=== PATIENT | female | born 1980 | race Caucasian/White ===

== ENCOUNTER 2016-08-07 06:22 | Emergency (ER) | payer BC ==
--- NOTE | 2016-08-07 07:11 | EDM.PDOC ---
ED HISTORY OF PRESENT ILLNESS - General Chief Complaint: Respiratory Problem Stated Complaint: FLU SYMPTOMS WORSE Time Seen by Provider: 08/07/16 06:44 Source of Information: Reports: Patient, RN notes reviewed - History of Present Illness INITIAL COMMENTS - FREE TEXT/NARRATIVE: 35-year-old female became ill with cough congestion sore throat 3 days ago. She has had headache myalgias, chills possible low-grade fever as well. She was seen at the clinic yesterday and did test positive for influenza B. She was started on Tamiflu. She is insulin-dependent diabetic and worried about possible dehydration. there's been no vomiting. Her sugars have been running in the 200s to low 300 range - Related Data Allergies/ADRs: Allergies Allergy/AdvReac Type Severity Reaction Status Date / Time No Known Allergies Allergy Verified 08/07/16 06:31 Home Meds: Home Meds Insulin Glarg,Human.Rec.Analog [Lantus] 15 units SUBCUT BID 02/22/14 [History] Insulin Lispro [HumaLOG] 12 units SUBCUT BID 02/22/14 [History] Omeprazole 20 mg PO DAILY 08/07/16 [History] Oseltamivir [Tamiflu] 75 mg PO BID 08/07/16 [History] Past Medical History - Past Health History Medical/Surgical History: Denies Medical/Surgical History Endocrine/Metabolic History: Reports: Diabetes, type I - Past Surgical History Other HEENT Surgeries/Procedures: wisdom teeth extraction Musculoskeletal Surgical History: Reports: Arthroscopic knee Other Musculoskeletal Surgeries/Procedures:: Left and Right AI jj release of thumb, Left toe surgery Social & Family History - Tobacco Use Smoking Status *Q: Never Smoker Second Hand Smoke Exposure: No - Caffeine Use Caffeine Use: Reports: Soda - Alcohol Use Days Per Week of Alcohol Use: 0 - Recreational Drug Use Recreational Drug Use: No Drug Use in Last 12 Months: No ED ROS GENERAL - Review of Systems Review Of Systems: See Below Constitutional: Reports: fever (Low-grade), chills HEENT: Reports: Sinus problem (She does have nasal and sinus congestion with clear drainage), Throat pain Respiratory: Reports: Cough. Denies: Shortness of Breath, Wheezing, Sputum Cardiovascular: Reports: Chest pain (With coughing) GI/Abdominal: Reports: Diarrhea (Mild), Nausea (Occasional). Denies: Abdominal pain, Vomiting Musculoskeletal: Reports: other (Generalized myalgias) Skin: Reports: no symptoms Neurological: Reports: Headache ED EXAM, GENERAL - Physical Exam Exam: See Below General Appearance: alert, no apparent distress, other (Occasional cough) Eye Exam: bilateral eye: PERRL Ears: normal TMs Nose: clear rhinorrhea (Mild) Throat/Mouth: Normal inspection, Normal oropharynx, Other (Oral mucosa is moist) Head: No: facial swelling Neck: supple, full range of motion. No: lymphadenopathy (L), lymphadenopathy (R ) Respiratory/Chest: no respiratory distress, lungs clear, normal breath sounds. No: rhonchi, wheezing Cardiovascular: regular rate, rhythm GI/Abdominal: non tender Extremities: normal inspection, normal range of motion Neurological: alert, oriented, no motor/sensory deficits Skin Exam: Warm, Dry, Normal color, No rash Course - Vital Signs Last Recorded V/S: Last Vital Signs Temp 99.1 F 08/07/16 06:32 Pulse 77 08/07/16 06:32 Resp 16 08/07/16 06:32 BP 116/69 08/07/16 06:32 Pulse Ox 99 08/07/16 06:32 - Re-Assessments/Exams Free Text/Narrative Re-Assessment/Exam: 08/07/16 07:14. Patient came in primarily worried about dehydration. She is not clinically dehydrated at this time. Her heart rate is 77. Oral mucosa is quite moist. She has been drinking water and should will be able to maintain hydration with oral fluid intake. This has been discussed with patient. One other main problem is quite severe throat discomfort with swallowing. She has a few hydrocodone left over from a prior procedure. I discussed with her that she may use that as appropriate for a day or 2 until she does get feeling better. Other symptomatic measures discussed with patient. Discharge instructions as documented Departure - Departure Time of Disposition: 07:05 Disposition: Home, Self-Care 01 Condition: fair Clinical Impression: Influenza Referrals: Berkley Lang NP [Primary Care Provider] - Forms: ED Department Discharge, Return to Work/School Form Additional Instructions: Continue to drink a lot of water, hot tea, soup to maintain hydration. Vaporizer or humidifier as needed. Continue Tamiflu as prescribed. Continue to watch your sugars carefully and use sliding scale to try help maintain control. You may alternate Tylenol and ibuprofen for discomfort or take hydrocodone as previously prescribed for severe discomfort today and tonight if needed to help you sleep. Your symptoms now will gradually start to get better over the next one to 3 days. You should be well enough to go back to work by next Wednesday. Followup clinic if not much better by Wednesday as expected. Return to ED as needed if symptoms worsening over the weekend.
[2016-08-07 07:27] VITALS: BP 129/91
== END 2016-08-07 07:20 | disposition home or self-care (01) ==
LOC: JD.ED 06:22
DX: J11.1 Influenza due to unidentified influenza virus with other respiratory manifestations (principal); E10.9 Type 1 diabetes mellitus without complications; Z98.890 Other specified postprocedural states
CPT/HCPCS: 99282; 99283

== ENCOUNTER 2019-01-02 09:39 | Emergency (ER) | payer BC ==
[2019-01-02 09:53] VITALS: BP 116/78; PULSE 96
[2019-01-02] MEDS ORDERED: Sodium Chloride 0.9% 10 ML Syringe FLUSH PRN (10:10)
[2019-01-02] MEDS ORDERED: HYDROmorphone 0.5 MG/0.5 ML Syringe IVPUSH ONE (10:10)
[2019-01-02] MEDS ORDERED: cefTRIAXone 2 GM in Sodium Chloride 0.9% 100 ML IV SCH (10:45)
[2019-01-02] MEDS ORDERED: Clindamycin Phosphate in D5W 900 MG in Premix Bag 1 BAG IV ONE ×2 (10:48)
--- NOTE | 2019-01-02 12:43 | EDM.PDOC ---
ED HPI GENERAL MEDICAL PROBLEM - General Chief Complaint: Bite:Animal, Insect Stated Complaint: DOG BITE TO THUMB Time Seen by Provider: 01/02/19 10:00 Source of Information: Reports: Patient, RN Notes Reviewed - History of Present Illness INITIAL COMMENTS - FREE TEXT/NARRATIVE: 38-year-old female was bit by a dog 2 days ago. This was not her dog, she was taking care of it but the dog is reported to been up-to-date with rabies. The dog bit the joint area of her right thumb. It did swell up immediately. By the next morning it was more swollen inflamed, looking infected. She was seen at the walk-in clinic yesterday morning, started on Augmentin 875 twice a day. She did take 2 dosages of that yesterday but did not take the Augmentin antibiotic this morning. Today the thumb is more inflamed, sore and swollen. No fever or chills. Does have pain with motion at the IP joint of the thumb. Treatments [employer]: Reports: NSAIDS Right Finger-Thumb Pain Score (Numeric/FACES): 6 - Related Data Allergies Allergy/AdvReac Type Severity Reaction Status Date / Time No Known Allergies Allergy Verified 01/02/19 09:53 Home Meds: Home Meds Insulin Glarg,Human.Rec.Analog [Lantus] 12 units SUBCUT BID 02/22/14 [History] Insulin Lispro [HumaLOG] 1 - 15 units SUBCUT QID 02/22/14 [History] Acetaminophen/HYDROcodone [[place] 325-5 MG] 1 tab PO Q6HR PRN #10 tablet [Rx] Amoxicillin 875 mg PO BID 01/02/19 [History] Clindamycin HCl [Cleocin HCl] 300 mg PO Q8HR #20 capsule 01/02/19 [Rx] Docusate Sodium [Colace] 100 mg PO DAILY 01/02/19 [History] Esomeprazole Magnesium [Nexium 24Hr] 20 mg PO DAILY 01/02/19 [History] Sucralfate [Carafate] 1 gm PO QID 01/02/19 [History] Past Medical History - Past Health History Medical/Surgical History: Denies Medical/Surgical History Endocrine/Metabolic History: Reports: Diabetes, Type I - Past Surgical History Other HEENT Surgeries/Procedures: wisdom teeth extraction Musculoskeletal Surgical History: Reports: Arthroscopic Knee Social & Family History - Tobacco Use Smoking Status *Q: Never Smoker - Caffeine Use Caffeine Use: Reports: Soda - Recreational Drug Use Recreational Drug Use: No ED ROS GENERAL - Review of Systems Review Of Systems: See Below Constitutional: Denies: Fever, Chills HEENT: Reports: No Symptoms Respiratory: Denies: Shortness of Breath Cardiovascular: Denies: Chest Pain GI/Abdominal: Denies: Abdominal Pain, Nausea, Vomiting Musculoskeletal: Reports: Joint Pain Skin: Reports: Erythema (R thumb) Neurological: Denies: Numbness, Tingling ED EXAM, ANIMAL BITE - Physical Exam Exam: See Below General Appearance: Alert, Mild Distress Head: Atraumatic. No: Facial Swelling Neck: Supple Respiratory/Chest: No Respiratory Distress, Lungs Clear Cardiovascular: Regular Rate, Rhythm Extremities: Joint Swelling (IP joint area of R thumb, small puncture michelle visible, no visible drainage, moderate localized tenderness), Other (pain with motion IP joint of R thumb) Neurological: No Motor/Sensory Deficits Skin Exam: Warm/Dry, Other (hand without swelling, warmth or erythema) Course - Vital Signs Last Recorded V/S: Last Vital Signs Temp 97.5 F 01/02/19 09:50 Pulse 96 01/02/19 09:50 Resp 16 01/02/19 09:50 BP 116/78 01/02/19 09:50 Pulse Ox 100 01/02/19 09:50 - Orders/Labs/Meds Labs: Laboratory Tests 01/02/19 01/02/19 Range/Units 10:16 10:16 WBC 5.29 (3.98-10.04) K/mm3 RBC 4.57 (3.98-5.22) M/mm3 Hgb 13.6 (11.2-15.7) gm/dl Hct 40.2 (34.1-44.9) % MCV 88.0 (79.4-94.8) fl MCH 29.8 (25.6-32.2) pg MCHC 33.8 (32.2-35.5) g/dl RDW Std Deviation 39.2 (36.4-46.3) fL Plt Count 301 (182-369) K/mm3 MPV 10.0 (9.4-12.3) fl Neut % (Auto) 75.0 H (34.0-71.1) % Lymph % (Auto) 15.9 L (19.3-51.7) % [place] % (Auto) 6.8 (4.7-12.5) % Eos % (Auto) 1.7 (0.7-5.8) Baso % (Auto) 0.6 (0.1-1.2) % Neut # (Auto) 3.97 (1.56-6.13) K/mm3 Lymph # (Auto) 0.84 L (1.18-3.74) K/mm3 [place] # (Auto) 0.36 (0.24-0.36) K/mm3 Eos # (Auto) 0.09 (0.04-0.36) K/mm3 Baso # (Auto) 0.03 (0.01-0.08) K/mm3 C-Reactive Protein 3.2 H* (<1.0) mg/dL Meds: Medications Discontinued Medications Generic Name Dose Route Start Last Admin Trade Name Freq PRN Reason Stop Dose Admin Hydromorphone HCl 0.5 mg 01/02/19 10:10 01/02/19 10:32 Dilaudid IVPUSH 01/02/19 10:11 0.5 mg ONETIME ONE Administration Ceftriaxone Sodium 2 gm/ 100 mls @ 200 mls/hr 01/02/19 10:45 01/02/19 10:59 Sodium Chloride IV 200 mls/hr Q24H OLEG Administration Clindamycin Phosphate 900 mg/ 50 mls @ 100 mls/hr 01/02/19 10:48 01/02/19 11: 32 Premix IV 01/02/19 11:17 100 mls/hr ONETIME ONE Administration Sodium Chloride 10 ml 01/02/19 10:10 01/02/19 10:33 Saline Flush FLUSH 10 ml ASDIRECTED PRN Administration Keep Vein Open - Re-Assessments/Exams Free Text/Narrative Re-Assessment/Exam: 01/12/19 13:46 WBC normal, CRP 3.2. We did give rocephin 2 grams IV, clindamycin 900 mg IV. Have set her up for continue IV rocephin IV and will have her continue oral clincamycin. Discharge instr. as documented. Departure - Departure Time of Disposition: 12:41 Disposition: Home, Self-Care 01 Condition: Fair Clinical Impression: Dog bite of extremity Cellulitis Qualifiers: Site of cellulitis: extremity Site of cellulitis of extremity: upper extremity Laterality: right Qualified Code(s): L03.113 - Cellulitis of right upper limb - Discharge Information Prescriptions: Acetaminophen/HYDROcodone [[place] 325-5 MG] 1 tab PO Q6HR PRN #10 tablet PRN Reason: Pain Clindamycin HCl [Cleocin HCl] 300 mg PO Q8HR #20 capsule Instructions: Cellulitis, Adult, [id number] Referrals: Berkley Lang NP [Primary Care Provider] - Forms: ED Department Discharge, ED Return to Work/School Form Additional Instructions: Rocephin 2 g IV has been given here in the ED, her has been written to continue that for the next 3 days. You've been given clindamycin 900 mg IV while here in the ED. Continue clindamycin 300 mg orally 3 times daily for the next week. For today take your next dose around 3:00 this afternoon and then evening dose at bedtime. You can alternate Tylenol and ibuprofen as needed for discomfort. Return to the hospital for the next 3 mornings around 8-9 AM to receive your further dosages of IV Rocephin antibiotic. Have rechecked at ED when you are here at the hospital 2 days from now. If the swelling, infection, inflammation of your thumb seems a lot worse tomorrow or if you start having fever chills tomorrow you should return to ED tomorrow for recheck.
== END 2019-01-02 13:30 | disposition home or self-care (01) ==
LOC: JD.ED 09:39
DX: S61.051A Open bite of right thumb without damage to nail, initial encounter (principal); L03.113 Cellulitis of right upper limb; E10.9 Type 1 diabetes mellitus without complications; Z79.899 Other long term (current) drug therapy; W54.0XXA Bitten by dog, initial encounter
CPT/HCPCS: 36415; 85025; 86140; 96365; 96367; 96375; 99283; J0696; J1170; J3490; J7030

== ENCOUNTER 2020-10-13 18:06 | Emergency (ER) | payer BC ==
[2020-10-13 18:21] VITALS: BP 108/95; PULSE 74
--- NOTE | 2020-10-13 19:08 | EDM.PDOC ---
ED HPI GENERAL MEDICAL PROBLEM - General Chief Complaint: Back Pain or Injury Stated Complaint: BACK PAIN Time Seen by Provider: 10/13/20 18:47 Source of Information: Reports: Patient, RN Notes Reviewed History Limitations: Reports: No Limitations - History of Present Illness INITIAL COMMENTS - FREE TEXT/NARRATIVE: Patient is a 39-year-old female presents to the ER for her ongoing lower back pain. Notes that the pain is been present for around 1 week now. States that this is in her right lower back, and does not seem to radiate anywhere else, down her leg or otherwise. She is not having any associated sick-like symptoms fevers or chills, cough or shortness of breath, no urinary discomfort, she has not lost control of her bowel or bladder, and has no saddle anesthesia. Patient does not think she could have twisted or moved the wrong way but she states that it does hurt worse to sit, or lay on her stomach. Notes that she has been having to sleep on her left side for the most part. States that she has been using ibuprofen pretty much [id number] and it does help but she was concerned that she was taking too much. Lower Back Pain Score (Numeric/FACES): 9 - Related Data Allergies Allergy/AdvReac Type Severity Reaction Status Date / Time No Known Allergies Allergy Verified 10/13/20 18:21 Home Meds: Home Meds Insulin Glarg,Human.Rec.Analog [Lantus] 21 units SUBCUT BID 02/22/14 [History] Insulin Lispro [HumaLOG] 1 - 15 units SUBCUT QID 02/22/14 [History] Famotidine [Pepcid AC] 10 mg PO DAILY 10/13/20 [History] Hydrocodone/Acetaminophen [Hydrocodone-Acetamin 5-325 mg] 1 each PO Q6H PRN #12 tablet 10/13/20 [Rx] Orphenadrine [Norflex] 100 mg PO BID PRN #20 tab 10/13/20 [Rx] methylPREDNISolone [Medrol Dose Pack] 4 mg PO ASDIRECTED #1 dospk 10/13/20 [Rx] Past Medical History - Past Health History Medical/Surgical History: Denies Medical/Surgical History Gastrointestinal History: Reports: Other (See Below) Other Gastrointestinal History: heartburn Endocrine/Metabolic History: Reports: Diabetes, Type I - Past Surgical History Other HEENT Surgeries/Procedures: wisdom teeth extraction Musculoskeletal Surgical History: Reports: Arthroscopic Knee Other Musculoskeletal Surgeries/Procedures:: Left and Right AI jj release of thumb, Left toe surgery Social & Family History - Family History Family Medical History: No Pertinent Family History - Tobacco Use Tobacco Use Status *Q: Never Tobacco User - Caffeine Use Caffeine Use: Reports: Coffee, Energy Drinks, Soda - Recreational Drug Use Recreational Drug Use: No ED ROS GENERAL - Review of Systems Review Of Systems: Comprehensive ROS is negative, except as noted in HPI. ED EXAM,LOWER BACK PAIN/INJURY - Physical Exam Exam: See Below Exam Limited By: No Limitations General Appearance: Alert, WD/WN, No Apparent Distress Respiratory/Chest: No Respiratory Distress, Lungs Clear, Normal Breath Sounds, No Accessory Muscle Use, Chest Non-Tender Cardiovascular: Normal Peripheral Pulses, Regular Rate, Rhythm, No Edema Back Exam: Muscle Spasm (Right lower back) Extremities: Normal Inspection, Normal Capillary Refill Neurological: Alert, Normal Mood/Affect, Normal Dorsiflexion, Normal Plantar Flexion Psychiatric: Normal Affect, Normal Mood Skin Exam: Warm, Dry, Intact, Normal Color, No Rash Course - Vital Signs Last Recorded V/S: Last Vital Signs Temp 96.8 F L 10/13/20 18:17 Pulse 74 10/13/20 18:17 Resp 15 10/13/20 18:17 BP 108/95 H 10/13/20 18:17 Pulse Ox 99 10/13/20 18:17 - Orders/Labs/Meds Orders: Active Orders 24 hr Category Date Time Status Lumbar Spine 2 or 3V [CR] Stat Exams 10/13/20 18:58 Ordered Acetaminophen/HYDROcodone [[place] 325-5 MG] Med 10/13/20 19:39 Once 2 tab PO ONETIME ONE Orphenadrine [Norflex] Med 10/13/20 19:39 Once 100 mg PO ONETIME ONE Medication Orders Hydrocodone Bitart/Acetaminophen (Acetaminophen/Hydrocodone 325-5 Mg Tab) 2 tab PO ONETIME ONE Stop: 10/13/20 19:40 Orphenadrine Citrate (Orphenadrine 100 Mg Tab.Er) 100 mg PO ONETIME ONE Stop: 10/13/20 19:40 Meds: Medications Generic Name Dose Route Start Last Admin Trade Name Freq PRN Reason Stop Dose Admin Hydrocodone Bitart/Acetaminophen 2 tab 10/13/20 19:39 Acetaminophen/Hydrocodone 325-5 Mg Tab PO 10/13/20 19:40 ONETIME ONE Orphenadrine Citrate 100 mg 10/13/20 19:39 Orphenadrine 100 Mg Tab.Er PO 10/13/20 19:40 ONETIME ONE - Re-Assessments/Exams Free Text/Narrative Re-Assessment/Exam: 10/13/20 19:07 Patient presents to the ER for the evaluation of her lower back pain, we will go ahead and get lumbar x-rays for evaluation of possible bulging disks versus other. Pain is directly over her SI joint on the right side. 10/13/20 19:31 X-rays have been obtained, I do not see anything major on x-rays to suggest source of her pain. We will go ahead and discharge her home with some pain meds and a short course of dexamethasone, as I do believe this is SI joint dysfunction part. Departure - Departure Time of Disposition: 19:32 Disposition: Home, Self-Care 01 Condition: Good Clinical Impression: Sacroiliac joint pain - Discharge Information *PRESCRIPTION DRUG MONITORING PROGRAM REVIEWED*: Yes *COPY OF PRESCRIPTION DRUG MONITORING REPORT IN PATIENT NADIYA: No Prescriptions: Hydrocodone/Acetaminophen [Hydrocodone-Acetamin 5-325 mg] 1 each PO Q6H PRN #12 tablet PRN Reason: Pain methylPREDNISolone [Medrol Dose Pack] 4 mg PO ASDIRECTED #1 dospk Orphenadrine [Norflex] 100 mg PO BID PRN #20 tab PRN Reason: Spasms Instructions: Back Injury Prevention, [id number] Referrals: Berkley Lang NP [Primary Care Provider] - Forms: ED Department Discharge Additional Instructions: You were evaluated in the ER today for your lower back pain. X-rays did not demonstrate any sign of acute fracture or other bony abnormality at today's visit. This is suspicious for SI joint dysfunction in nature, as the pain you are describing is right over the SI (sacroiliac) joint. Management of this will be a short course of steroids, some pain medication, and muscle relaxers Please note that since you are diabetic, that the steroids can cause increase in your blood sugars, so you will need to watch your sugars pretty closely while using this medication. You were given a prescription for a strong pain medication, hydrocodone/acetaminophen 5/325 mg, please take 1 tab every 6 hours as needed for pain not relieved by Tylenol or ibuprofen alone. Please note this medication does contain Tylenol in it, so do not take more than 4000 mg in a 24- hour time span. These medications can be addictive, so please take as few as possible to achieve adequate pain control. These meds can also be quite constipating, recommend that you increase your oral fluid intake and take a stool softener like MiraLAX while taking these medications. Do not drive while taking this medication. This medication was electronically sent to the [place] [facility] located in the [employer] store. If pain does not seem to be much improved in roughly 1 week's time, recommend you follow-up with your regular care provider for MRI purposes for further evaluation. Do not hesitate to return to the ER at any time if symptoms change or worsen. Sepsis Event Note (ED) - Evaluation Sepsis Screening Result: No Definite Risk - Focused Exam Vital Signs: Vital Signs Temp Pulse Resp BP Pulse Ox 10/13/20 18:17 96.8 F L 74 15 108/95 H 99 - My Orders Last 24 Hours: My Active Orders 10/13/20 18:58 Lumbar Spine 2 or 3V [CR] Stat 10/13/20 19:39 Acetaminophen/HYDROcodone [[place] 325-5 MG] 2 tab PO ONETIME ONE Orphenadrine [Norflex] 100 mg PO ONETIME ONE - Assessment/Plan Last 24 Hours: My Active Orders 10/13/20 18:58 Lumbar Spine 2 or 3V [CR] Stat 10/13/20 19:39 Acetaminophen/HYDROcodone [[place] 325-5 MG] 2 tab PO ONETIME ONE Orphenadrine [Norflex] 100 mg PO ONETIME ONE
[2020-10-13] MEDS ORDERED: Orphenadrine 100 MG Tab.ER PO ONE (19:39)
[2020-10-13] MEDS ORDERED: Acetaminophen/HYDROcodone 325-5 MG Tab PO ONE (19:39)
--- NOTE | 2020-10-13 19:51 | CR ---
Lumbar spine: AP, lateral and coned-down lateral views centered to the lumbosacral junction were obtained. Comparison: No prior lumbar spine imaging is available. Severe disc space narrowing is noted at L5-S1. Minimal posterior osteophyte is seen at this level as well as minimal anterior osteophytes. Other disc spaces are maintained. Vertebral body heights are maintained. Minimal osteophytes are also seen scattered within other visualized portions of the spine. Sacroiliac joints are normal. Pedicles are intact. Visualized transverse and spinous processes are intact. No discrete fracture or subluxation is seen. Impression: 1. Degenerative change as described above. Diagnostic code #2
== END 2020-10-13 19:54 | disposition home or self-care (01) ==
LOC: JD.ED 18:06
DX: M53.3 Sacrococcygeal disorders, not elsewhere classified (principal); E10.9 Type 1 diabetes mellitus without complications
CPT/HCPCS: 72100; 99283; A9270

== ENCOUNTER 2022-03-22 11:03 | Emergency (ER) | payer BC ==
[2022-03-22] MEDS ORDERED: Ketorolac 30 MG/ML SDV IM ONE (13:07)
[2022-03-22 14:39] VITALS: BP 142/95; PULSE 89
== END 2022-03-22 14:39 | disposition home or self-care (01) ==
LOC: JD.ED 11:03
DX: S09.90XA Unspecified injury of head, initial encounter (principal); E10.9 Type 1 diabetes mellitus without complications; Z79.4 Long term (current) use of insulin; Z79.899 Other long term (current) drug therapy; W22.8XXA Striking against or struck by other objects, initial encounter
CPT/HCPCS: 36415; 70450; 80053; 85025; 96372; 99284; J1885

== ENCOUNTER 2025-03-17 13:06 | Emergency (ER) | payer BC ==
[2025-03-17] MEDS ORDERED: Sodium Chloride 0.9% 10 ML Syringe FLUSH PRN (13:28)
[2025-03-17 14:22] LABS: BASOPHILS ABSOLUTE AUTO 0.0 K/mm3 (0.0-0.2); BASOPHILS PERCENT AUTO 0.6 % (0.0-1.0); EOSINOPHILS ABSOLUTE AUTO 0.1 K/mm3 (0.0-0.4); EOSINOPHILS PERCENT AUTO 2.2 % (0.0-6.0); IMMATURE GRAN ABSOLUTE AUTO 0.01 K/mm3 (0.00-0.05); IMMATURE GRAN PERCENT AUTO 0.3 % (0.0-0.4); LYMPHOCYTES ABSOLUTE AUTO 1.1 K/mm3 (1.0-4.8); LYMPHOCYTES PERCENT AUTO 35.1 % (24.0-44.0); MEAN PLATELET VOLUME 10.2 fl (9.4-12.3); MONOCYTES ABSOLUTE AUTO 0.3 K/mm3 (0.0-0.8); MONOCYTES PERCENT AUTO 7.8 % (0.0-8.0); NEUTROPHILS ABSOLUTE AUTO 1.7 K/mm3 (1.8-7.7); NEUTROPHILS PERCENT AUTO 54.0 % (41.0-71.0); NRBC ABSOLUTE 0.00 (0.00-0.02); NRBC PERCENT 0.0 % (0.0-0.2); PLATELET COUNT,PLT 252 K/mm3 (150-400); RED BLOOD CELL COUNT 4.20 M/mm3 (4.10-5.30); WHITE BLOOD CELL COUNT,WBC 3.22 K/mm3 (3.9-11.3)
[2025-03-17 14:45] LABS: A/G RATIO 1.1 (1-2); ALANINE AMINOTRANSFERASE,ALT 15.0 U/L (14-59); ASPARTATE AMNIOTRANSFERASE,AST 14.0 U/L (15-37); BILIRUBIN TOTAL 0.6 mg/dL (0.2-1.0); BLOOD UREA NITROGEN,BUN 11.0 mg/dL (7-18); CARBON DIOXIDE,CO2 27.0 mEq/L (21-32); CHLORIDE,CL 105.0 mEq/L (98-107); CREATININE 0.8 mg/dL (0.55-1.02); EST CRCL DRUG DOSING (CG) 70.98 mL/min; ESTIMATED GFR 93.0 mL/min (>60); GLUCOSE RANDOM 156.0 mg/dL (70-99); POTASSIUM,K 3.4 mEq/L (3.5-5.1); PROTEIN TOTAL,TP 6.6 g/dl (6.4-8.2); SODIUM,NA 141.0 mEq/L (136-145)
[2025-03-17 15:51] VITALS: BP 163/82; PULSE 67
== END 2025-03-17 15:28 | disposition home or self-care (01) ==
LOC: JD.ED 13:06
DX: R10.13 Epigastric pain (principal); E10.9 Type 1 diabetes mellitus without complications; Z79.4 Long term (current) use of insulin; Z79.899 Other long term (current) drug therapy
CPT/HCPCS: 36415; 80053; 83690; 85025; 99284